=== PATIENT | female | born 1945 | race Caucasian/White ===

== ENCOUNTER 2016-12-21 08:34 | Inpatient (IN) | payer OTHER ==
--- NOTE | 2016-12-17 13:06 | GHP ---
[f rep st] HISTORY AND PHYSICAL Amended report CHIEF COMPLAINT: Right hip pain. HISTORY OF PRESENT ILLNESS: The patient is a 71-year-old female with a long history of right hip pain, worse with use, with time despite multiple conservative measures. Radiology studies reveal lhag-ux-laef osteoarthritic changes. She wishes to have surgery in order to resolve the problem. ALLERGIES: She lists no drug allergies. MEDICATIONS: None. MEDICAL HISTORY: Significant for arthritis and cancer. PRIOR SURGERIES: Include orthopedic surgery in 2007. SOCIAL HISTORY: She is a former smoker. PHYSICAL EXAMINATION: EYES: Pupils are equal, round, and reactive to light. CHEST: Clear to auscultation. HEART: Regular rate and rhythm. ABDOMEN: Soft , nontender. EXTREMITIES: Her right hip has decreased range of motion with pain at the end of internal/external rotation. ASSESSMENT AND PLAN: Patient is status post right hip osteoarthritis. Risks and benefits of surgery were thoroughly discussed with the patient. She is willing to proceed; therefore, consent was signed. She was given postop followup appointment for removal of suture. /[id number]/MODL Add acc#, 12/17/16, dina RODRIGUEZ
--- NOTE | 2016-12-21 07:09 | PDHPUP ---
History & Physical Update H&P update statement: This history and physical update is based on an assessment of the patient which was completed after admission or registration (within 24 hours), but prior to the surgery/procedure. H&P update: H&P reviewed & patient examined, no change in patient's condition since H&P completed
[~2016-12-21 08:34] MED LIST: ACETAMINOPHEN 500 MG TAB PO ONE; ROPIVACAINE 0.2% 80 MG, EPINEPHrine 0.2 MG, KETOROLAC TROMETHAMINE 30 MG, morphINE 10 M... IU ONE; ceFAZolin 2 GM/DEXTROSE 100 ML IV ONE
[2016-12-21] MEDS ORDERED: LR 1,000 ML IV ONE (08:51)
[2016-12-21] MEDS ORDERED: LIDOCAINE 1% 2 ML INJ ID PRN (08:51)
[2016-12-21] MEDS ORDERED: CALCIUM CHLORIDE 1 GM/10 ML INJ ONE (09:37)
[2016-12-21] MEDS ORDERED: BUPIVACAINE/EPI 0.5% 30 ML SDV ONE (09:37)
[2016-12-21] MEDS ORDERED: THROMBIN (BOVINE) 5,000 UNIT VIAL TP ONE (09:37)
[2016-12-21] MEDS ORDERED: BACITRACIN 50,000 UNITS/10 ML SYR IRR ONE (09:38)
[2016-12-21] MEDS ORDERED: POLYMYXIN B SULFATE 500,000 UNIT/10 ML SYR IRR ONE (09:38)
[2016-12-21] MEDS ORDERED: fentaNYL 100 MCG/2 ML INJ ONE ×2 (09:54→12:50)
[2016-12-21] MEDS ORDERED: PROPOFOL/EMULSION 500 MG/50 ML BOTTLE IV ONE (09:55)
[2016-12-21] MEDS ORDERED: MIDAZOLAM 2 MG/2 ML VIAL ONE (09:59)
[2016-12-21] MEDS ORDERED: ALBUTEROL 3 ML DEYVIAL IH PRN (10:24)
[2016-12-21] MEDS ORDERED: MEPERIDINE 25 MG/ML SYR IVP PRN (10:24)
[2016-12-21] MEDS ORDERED: HYDROmorphONE/DILAUDID 1 MG/ML SYR IVP PRN (10:24)
[2016-12-21] MEDS ORDERED: NALOXONE HCL 0.4 MG/ML INJ IVP PRN (10:24)
[2016-12-21] MEDS ORDERED: PROMETHAZINE HCL 25 MG/ML INJ IVP PRN ×2 (10:24→12:34)
[2016-12-21] MEDS ORDERED: METOCLOPRAMIDE 10 MG/2 ML VIAL IVP PRN ×2 (10:24→12:34)
[2016-12-21] MEDS ORDERED: ONDANSETRON 4 MG/2 ML VIAL IVP PRN ×2 (10:24→12:34)
[2016-12-21] MEDS ORDERED: LR 500 ML IV PRN (10:24)
--- NOTE | 2016-12-21 10:28 | PDANEPAE ---
ANE Past Medical History - Cardiovascular History Hx Hypertension: No Hx Arrhythmias: No Hx Chest Pain: No Hx Coronary Artery / Peripheral Vascular Disease: No Hx CHF / Valvular Disease: No Hx Palpitations: No - Pulmonary History Hx COPD: No Hx Asthma/Reactive Airway Disease: No Hx Recent Upper Respiratory Infection: No Hx Oxygen in Use at Home: No Hx Sleep Apnea: No Sleep Apnea Screening Result - Last Documented: Negative Pulmonary History Comment: pneumonia in past x3-4 - Neurologic History Hx Cerebrovascular Accident: No Hx Seizures: No Hx Dementia: No - Endocrine History Hx Diabetes: No - Renal History Hx Renal Disorders: No - Liver History Hx Hepatic Disorders: No - Neurological & Psychiatric Hx Hx Neurological and Psychiatric Disorders: Yes Neurological / Psychiatric History Comment: low back pain probably due to change in gait - Cancer History Hx Cancer: Yes Cancer History Comment: R breast - Congenital Disorder History Hx Congenital Disorders: No - GI History Hx Gastrointestinal Disorders: No - Other Health History Other Health History: OA R hip. pain/swelling L knee-meniscus tear? - Chronic Pain History Chronic Pain: Yes (R hip,L knee) - Surgical History Prior Surgeries: R shoulder replacement 2007. R shoulder scope 2006. R breast lumpectomy ANE Review of Systems - Exercise capacity METS (RN): 4 METS ANE Patient History - Allergies Allergies/Adverse Reactions: No Known Allergies Allergy (Verified 12/10/16 11:44) - Home Medications Home Medications: Acid Registered Nurse Nursery 12/10/16 [Last Taken 12/18/16] Doxylamine Succinate 12/10/16 [Last Taken 12/20/16] Tylenol 12/10/16 [Last Taken 12/20/16] - NPO status NPO Since - Liquids (Date): 12/20/16 NPO Since - Liquids (Time): 23:30 NPO Since - Solids (Date): 12/20/16 NPO Since - Solids (Time): 18:00 - Smoking Hx Smoking Status: Former smoker ANE Labs/Vital Signs - Vital Signs Blood Pressure: 113/66 Heart Rate: 69 Respiratory Rate: 16 O2 Sat (%): 93 Height: 170.18 cm Weight: 76.204 kg ANE Physical Exam - Airway Neck exam: FROM Mallampati Score: Class 2 Mouth exam: normal dental/mouth exam - Pulmonary Pulmonary: no respiratory distress, clear to auscultation - Cardiovascular Cardiovascular: regular rate and rhythym - ASA Status ASA Status: II
[2016-12-21] MEDS ORDERED: DEXAMETHASONE 4 MG/ML VIAL ONE (10:31)
[2016-12-21] MEDS ORDERED: ONDANSETRON 4 MG/2 ML VIAL ONE (10:31)
[2016-12-21] MEDS ORDERED: PHENYLEPHRINE HCL 100 MCG/ML SYR ONE (10:32)
--- NOTE | 2016-12-21 12:32 | POSTOPPROG ---
Post Op Note Date of Operation: 12/21/16 Surgeon: Irene Collado Bone Char Operator: rudy Anesthesiologist: yessi Anesthesia: Epidural, IV Sedation Pre-op Diagnosis: r hip oa Procedure: r tiago with fluoro Inf/Abcess present in the surg proc area at time of surgery?: No Depth: Deep Incisional (Fascial) EBL: 100-500
[2016-12-21] MEDS ORDERED: MAGNESIUM HYDROXIDE 30 ML UDCUP PO PRN (12:34)
[2016-12-21] MEDS ORDERED: diphenhydrAMINE 25 MG CAP PO PRN (12:34)
[2016-12-21] MEDS ORDERED: TAPENTADOL HCL 50 MG TAB PO PRN (12:34)
[2016-12-21] MEDS ORDERED: DIPHENOXYLATE/ATROPINE LOMOTIL 1 TAB PO PRN (12:34)
[2016-12-21] MEDS ORDERED: POLYETHYLENE GLYCOL 3350 17 GM PKT PO PRN (12:34)
[2016-12-21] MEDS ORDERED: CYCLOBENZAPRINE 10 MG TAB PO PRN (12:34)
[2016-12-21] MEDS ORDERED: PROMETHAZINE HCL 25 MG SUPPR PR PRN (12:34)
[2016-12-21] MEDS ORDERED: PHARMACY PAIN CONSULT 1 EA MISC PRN (12:34)
[2016-12-21] MEDS ORDERED: BISACODYL 10 MG SUPP PR PRN (12:34)
[2016-12-21] MEDS ORDERED: LACTULOSE 20 GM/30 ML UDCUP PO PRN (12:34)
[2016-12-21] MEDS ORDERED: TEMAZEPAM 15 MG CAP PO PRN (12:34)
[2016-12-21] MEDS ORDERED: ONDANSETRON DISINTEGRATING 4 MG TAB PO PRN (12:34)
--- NOTE | 2016-12-21 12:39 | POSTANESTH ---
Post Anesthetic Evaluation Respiratory Status: Normal, Stable Level of Consciousness/Mental Status: Can Participate in Eval Pain Control: Adequate, Prn Tx Ordered Nausea/Vomiting Control: Adequate, Prn Tx Ordered Complications Possibly Related to Anesthesia: None Noted
[2016-12-21] MEDS: fentaNYL 100 MCG/2 ML INJ IVP PRN ×2 (12:52→13:01)
[2016-12-21] MEDS ORDERED: LR 1,000 ML IV SCH (13:00)
[2016-12-21] MEDS ORDERED: ceFAZolin 2 GM/DEXTROSE 100 ML IV SCH (14:00)
--- NOTE | 2016-12-21 14:13 | GOP ---
[f rep st] OPERATIVE REPORT DATE OF OPERATION: 12/21/2016 SURGEON: Irene Clolado MD COMBAT SYSTEMS OPERATOR: Hemant Nugent, CSFA, LSA, whose presence was medically necessary. ANESTHESIA: By epidural nerve block. PREOPERATIVE DIAGNOSIS: Right hip osteoarthritis. POSTOPERATIVE DIAGNOSIS: Right hip osteoarthritis. PROCEDURE PERFORMED: Right total hip arthroplasty with fluoroscopy. FINDINGS: INDICATIONS: This is a 71-year-old female with a several-year history of right hip pain slowly wors ening with use and with time to the point she has difficulty ambulating without taking significant a mount of anti-inflammatories. X-ray exams have revealed ifmy-cs-bqwk osteoarthritic changes. She w ishes to have surgery in order to resolve the problem. DESCRIPTION OF PROCEDURE: The patient was brought to the operating room after the right side had be en identified as correct side by the patient, nurse and physician. Once in the operating room, she was given an epidural nerve block. The patient was then placed on a traction table with a well-padd ed peroneal post. Both legs were placed in appropriate leg tang. Fluoroscopy was used to ensure proper positioning of the pelvis and adequate visualization of both hips. Once in place, the arch t able was locked into place, and the right hip and flank were sterilely prepped and draped in usual f ashion using GSI solution. Once prepped and draped, an incision was made starting 2 cm lateral and inferior to the ASIS and hea ding in a 15-degree posterior direction. Sharp dissection was carried down through the skin and sub cutaneous layers with bleeding controlled using electrocautery until identifying the fascia overlyin g the tensor fascia della sheath. The fascia was incised in line with its fibers, with the muscle be lly of the TFL retracted laterally. Further deeper dissection of the sheath revealed the circumflex vessels; those were also cauterized. Deeper dissection was carried down on the anterior capsule of the hip with blunt Cobra retractors placed in the superior and inferior portions of the capsule ass ociated with hip. A Hohmann placed on the anterior portion in order to gain further visu alization. A T-incision was made through the anterior capsule with stay sutures placed in superior and inferior portions of the capsule. The Cobra retractor was then placed intra-articularly. Oscil ivyg saw was used to cut across the femoral neck 1 cm above the intercondylar line. The cut was c ompleted with an osteotome. The leg was externally rotated 40 degrees. A corkscrew was placed in t he femoral head, and the head was removed as 1 piece. Attention was turned to the acetabulum. With the labrum from the posterior, superior and anterior p ortions of the acetabulum removed, pulvinar was removed from the base, the acetabulum along with the remainder of the ligamentum teres. Reamers were used within the acetabulum, starting at a size 48 and increasing to a size 53, achieving bleeding bone and good peripheral fit. A 53 trial was put in to place and noted to fit securely; therefore, a 53 mm Tritanium hemispheric cluster hole shell from [employer] [facility] was put into place with a screw placed in the superior and posterior portions of the acetab ulum. Each position was checked under fluoroscopy, noting good position of the trial and of the act ual cup. Manhole cover was placed as base, and a 54 x 32 ceramic liner was placed within the acetab ulum. Attention was then turned to the proximal femur, with dissection done of the anterior capsule and joseph perior capsule off the femoral neck removed. Once an adequate amount of tissue had been removed, th e leg was able to be dropped into extension and adduction. Curette was used to remove medullary bon e from the proximal portion of the femur, and a rongeur was used to remove the superior portion of t he femoral neck. Multiple broaches were placed within the femur, noting a size 4 seemed to fit secu rely. Trial reduction was performed, noted to have adequate fill of the proximal femur and good leg lengths. Therefore, the leg was re-dislocated, placed in extension and adduction. A size 4 Accola de II, 127-degree neck stem was put into place, noted to fit securely. Different trial heads were p ut into place, noted to have the best leg length with a -4 head. Therefore, the hip was re-dislocat ed. The trunnion was washed and dried, and a 32, -4 ceramic head was put into place. Once tapped i nto place, the hip was reduced. A joint cocktail was injected into the posterior capsule and around the acetabulum and proximal femu r. The capsule was then closed with 0 Vicryl suture in a irinma-yi-mgnro type stitch with Plasma Ge l placed intra-articularly. The TFL sheath was allowed to come back together. An 0 Vicryl suture w as used in a simple running stitch to close the sheath, with Plasma Gel placed within the tendon she ath. 0 Vicryl and 2-0 Vicryl suture were used for the subcutaneous layers with 30 cc of Marcaine in fused around the actual skin incision itself. A 3-0 V-Loc suture was used in a running subcuticular stitch for the skin. The wound was then dressed with Steri-Strips, Xeroform, 4 x 4, and Tegaderm. She was completely undraped in the operating room, had both legs taken out of appropriate leg tang s. The peroneal posts were removed. Leg lengths were checked, and noted to be nearly equal. She w as then transferred onto a stretcher, and sent to recovery room in good condition. /[id number]/MODL
[2016-12-21] MEDS: oxyCODONE IR 5 MG TAB PO PRN ×3 (15:10→22:17)
[2016-12-21] MEDS: ceFAZolin 2 GM/DEXTROSE 100 ML IV SCH ×2 (16:34→22:15)
[2016-12-21] MEDS: KETOROLAC 30 MG/1 ML SDV IVP SCH (18:05)
[2016-12-21] MEDS: ACETAMINOPHEN 325 MG TAB PO SCH ×2 (21:04→22:16)
[2016-12-21] MEDS: traMADol 50 MG TAB PO SCH ×2 (21:04→22:16)
[2016-12-21] MEDS: SENNOSIDES/DOCUSATE SODIUM TAB PO SCH (22:15)
[2016-12-21] MEDS: FAMOTIDINE 20 MG TAB PO SCH (22:17)
[2016-12-22] MEDS: KETOROLAC 30 MG/1 ML SDV IVP SCH ×2 (00:47→07:22)
[2016-12-22 05:24] LABS: HEMATOCRIT 26.7 % (38.0-47.0); HEMOGLOBIN 9.3 g/dL (12.6-16.3)
[2016-12-22] MEDS: traMADol 50 MG TAB PO SCH ×2 (06:31→13:49)
[2016-12-22] MEDS: ACETAMINOPHEN 325 MG TAB PO SCH ×2 (06:32→13:48)
[2016-12-22] MEDS: SENNOSIDES/DOCUSATE SODIUM TAB PO SCH (08:05)
[2016-12-22] MEDS: FAMOTIDINE 20 MG TAB PO SCH (08:06)
[2016-12-22] MEDS ORDERED: RIVAROXABAN 10 MG TAB PO SCH (09:00)
[2016-12-22] MEDS ORDERED: FERROUS SULFATE 140 MG TAB.ER PO SCH (09:00)
--- NOTE | 2016-12-22 11:31 | SOAPPROG ---
SOAP Progress Note Assessment/Plan: Assessment: Plan: d/c home today c PT dressing changed 12/22/16 11:29 Subjective: Doing well, minimal pain, did PT, some nausea has not been able to eat yet, hopes she can keep lunch down Objective: Vital Signs Temp Pulse Resp BP Pulse Ox 37.0 C 73 15 103/51 L 95 12/22/16 07:58 12/22/16 07:58 12/22/16 07:58 12/22/16 07:58 12/22/16 07:58 Laboratory Results 12/22/16 04:31 12/21/16 12/22/16 12/23/16 05:59 05:59 05:59 Intake Total 1400 Output Total 500 Balance 900 Wound small amt of active bleeding, dressing was soaked with blood, compartments are soft, NVI - Time Spent With Patient Time Spent With Patient: 10 - Pending Discharge Pending Discharge Within 24 Hours: Yes Pending Discharge Within 48 Hours: No Pending Discharge Date: 12/23/16 Pending Discharge Time: 11:00 ICD10 Worksheet Patient Problems: Problems Problem Status Onset Arthritis of right hip Acute - ICD10 Problem Qualifiers (1) Arthritis of right hip
--- NOTE | 2016-12-22 11:33 | PDIAF ---
- Diagnosis Code Status: Full Code - Medication Management Discharge Medications: Medications to Continue on Transfer Herbals/Supplements -Info Only 1 ea PO DAILY 12/21/16 [Last Taken Unknown] Acetaminophen [Tylenol 325mg (*)] 650 mg PO Q6HRS #0 tab 12/22/16 [Last Taken Unknown] Rivaroxaban [Xarelto 10mg (*)] 10 mg PO DAILY #0 tab 12/22/16 [Last Taken Unknown] Tapentadol HCl [Nucynta 50 MG (*)] 50 mg PO Q4HRS PRN #0 tab 12/22/16 [Last Taken Unknown] oxyCODONE IR [Oxycodone Ir (*)] 5 - 10 mg PO Q3HRS PRN #0 tab 12/22/16 [Last Taken Unknown] Discharge Medications: Refer to the Discharge Home Medication list for PRN reason. PICC Care - Routine: N/A - Orders Services needed: Physical Therapy Diet Recommendation: no restrictions on diet Diet Texture: Regular Texture Diet Sepulveda: Not applicable Wound Care Instructions: Change dressing as needed - Follow Up Care Current Providers and Referrals: Rashel Hinojosa MD [Primary Care Provider] -
[2016-12-22 11:35] VITALS: BP 120/54; PULSE 78; RESP 14; TEMP 98; O2SAT 97
== END 2016-12-22 14:23 | disposition home health service (06) | DRG 470 ==
LOC: F3N 08:34
PROVIDERS: ADMIT Orthopaedic Surgery; ATTEND Orthopaedic Surgery
PROC: 0SR903Z Replacement of Right Hip Joint with Ceramic Synthetic Substitute, Open Approach (ICD-10-PCS; principal; 2016-12-21 10:15)
DX: M16.11 Unilateral primary osteoarthritis, right hip (principal); Z87.891 Personal history of nicotine dependence
CPT/HCPCS: 97116-GP; 97161-GP; 97165-GO; C1713; G8978-GP-CJ; G8979-GP-CI; G8980-GP-CI; G8987-GO-CI; G8988-GO-CI; G8989-GO-CI; J0171; J0690; J1100; J1885; J2250; J2370; J2405; J2550; J2704; J2765; J2795; J3010

== ENCOUNTER 2016-12-26 07:55 | Emergency (ER) | payer OTHER ==
[2016-12-26 08:05] VITALS: RESP 18
--- NOTE | 2016-12-26 08:16 | EDPHY ---
H & P Time Seen by Provider: 12/26/16 08:15 HPI/ROS: Chief complaint. Blood in urine HPI. 71-year-old female emergency department with dark urine this morning. She had a hip replacement 5 days ago. She gets a dry mouth after taking her medication and thinks that she had decreased oral intake last night. She is concerned there may have been blood in her urine this morning and she is on Xarelto since her surgery. She notes increased swelling to her right thigh and not wearing her Trent hose but still continuing to take her Xarelto. Dark urine this morning. No urinary symptoms. No fever. ROS Constitutional. no fever/chills, no weakness Eyes. no problems with vision ENT. no sore throat, no nasal drainage Cardiovascular. no chest pain Respiratory. no shortness of breath, no cough Abdominal. no abdominal pain, no nausea/vomiting, no diarrhea . Possible blood in urine MS. Right thigh swelling Skin. no rash Lymph. no swollen glands Neuro. no headache, no dizziness, no difficulty walking or with speech Past Medical/Surgical History: Past medical history significant for recent right hip replacement, right breast cancer status post lumpectomy, insomnia, right shoulder surgery Social History: , nonsmoker, no alcohol Smoking Status: Former smoker Physical Exam: General Appearance: Alert well-developed female mild distress vital signs stable Eyes: Pupils equal and round no pallor or injection. ENT, Mouth: Mucous membranes are moist. Respiratory: There are no retractions, lungs are clear to auscultation. Cardiovascular: Regular rate and rhythm. Gastrointestinal: Abdomen is soft and nontender, no masses, bowel sounds normal. Neurological: Awake and alert, sensory and motor exams grossly normal. Skin: Warm and dry, no rashes. Musculoskeletal: Neck is supple nontender. Extremities right thigh is swollen and ecchymotic. Incision line appears to have good approximation and no evidence for infection. No calf pain or swelling. Psychiatric: Patient is oriented X 3, there is no agitation. Constitutional: Initial Vital Signs Temperature (C) 37.2 C 12/26/16 08:02 Heart Rate 84 12/26/16 08:02 Respiratory Rate 18 12/26/16 08:02 Blood Pressure 124/79 H 12/26/16 08:02 O2 Sat (%) 98 12/26/16 08:02 O2 Delivery Mode Room Air Allergies/Adverse Reactions: No Known Allergies Allergy (Verified 12/10/16 11:44) Home Medications: Medication Instructions Recorded Herbals/Supplements -Info Only 1 ea PO DAILY 12/21/16 Acetaminophen [Tylenol 325mg (*)] 650 mg PO Q6HRS #0 tab 12/22/16 Rivaroxaban [Xarelto 10mg (*)] 10 mg PO DAILY #0 tab 12/22/16 oxyCODONE IR [Oxycodone Ir (*)] 5 - 10 mg PO Q3HRS PRN #0 tab 12/22/16 Tapentadol HCl 12/26/16 Medical Decision Making - Diagnostics Imaging Results: Imaging Impressions Extremity Venous Study 12/26/16 08:36 Impression: No evidence of deep vein thrombosis in the right lower extremity. Results called and discussed with RAJEEV WOODARD M.D. on 12/26/2016 at 9:41 Ultrasound right lower extremity shows no evidence of DVT. It is reviewed by me and discussed with Dr. King BIANCHI Course/Re-evaluation: Urinalysis is negative for blood or infection Re-evaluation 9:55 a.m.--patient is stable. She and I discussed lab and imaging study results. We discussed treatment plan including criteria for return importance of follow-up and further evaluation. She expresses understanding and agreement. The patient is encouraged to decrease activity somewhat and ice and elevate her right lower extremity to decrease her swelling. Differential Diagnosis: The patient felt that she may have blood in her urine. I considered hematuria and urinary tract infection. Patient is on Xarelto the last 5 days. However her urinalysis is normal other than urobilinogen. There is no evidence for DVT. I think this is postop swelling - Data Points Laboratory Results: 12/26/16 08:15 Urine Color YELLOW Urine Appearance CLEAR Urine pH 6.0 (5.0-7.5) Ur Specific [place] 1.010 (1.002-1.030) Urine Protein NEGATIVE (NEGATIVE) Urine Ketones NEGATIVE (NEGATIVE) Urine Blood NEGATIVE (NEGATIVE) Urine Nitrate NEGATIVE (NEGATIVE) Urine Bilirubin NEGATIVE (NEGATIVE) Urine Urobilinogen 4.0 EU H EU (0.2-1.0) Ur Leukocyte Esterase NEGATIVE (NEGATIVE) Urine RBC NONE SEEN /hpf /hpf (0-3) Urine WBC 1-3 /hpf /hpf (0-3) Ur Epithelial Cells TRACE /lpf /lpf (NONE-1+) Urine Mucus TRACE /lpf /lpf (NONE-1+) Urine Glucose NEGATIVE (NEGATIVE) Departure - Departure Disposition: Home, Routine, Self-Care Clinical Impression: Postop swelling Condition: Good Instructions: Precautions after Total Joint Replacement Surgery (ED) Additional Instructions: Easy activity. Elevate leg as much as possible next several days. I spoke off and on next 48 hours. Continue regular medications. Drink plenty of fluids and stay hydrated. Return for worsening symptoms Referrals: Rashel Hinojosa MD [Primary Care Provider] - As per Instructions Irene Collado MD [Medical Doctor] - As per Instructions
[2016-12-26 08:35] LABS: COLOR YELLOW; LEUKOCYTE ESTERASE,URINE NEGATIVE (NEGATIVE); NITRITE,URINE NEGATIVE (NEGATIVE)
[2016-12-26 08:36] LABS: MUCUS TRACE /lpf (NONE-1+)
[2016-12-26 08:37] LABS: RBC,URINE NONE SEEN /hpf (0-3)
[2016-12-26 10:38] VITALS: BP 124/62; PULSE 69; TEMP 98.4; O2SAT 96
== END 2016-12-26 10:37 | disposition home or self-care (01) ==
DX: T81.89XA Other complications of procedures, not elsewhere classified, initial encounter (principal); M79.89 Other specified soft tissue disorders; Z85.3 Personal history of malignant neoplasm of breast; Z87.891 Personal history of nicotine dependence; Y79.2 Prosthetic and other implants, materials and accessory orthopedic devices associated with adverse incidents

== ENCOUNTER 2017-12-08 09:55 | Emergency (ER) | payer OTHER ==
--- NOTE | 2017-12-08 10:30 | EDPHY ---
General - History Smoking Status: Former smoker Time Seen by Provider: 12/08/17 10:18 Narrative: CHIEF COMPLAINT: Left foot injury last night HISTORY OF PRESENT ILLNESS: Patient presents with spouse at bedside. She complains of injury to the left foot late last night. She says she was getting in bed when she stubbed the left foot against the bed. She says that it was very painful but she went sleep. She woke this morning with more pain some swelling and bruising. Able to walk but it is very painful to do so. Does not radiate. No numbness or tingling. No laceration or puncture. No pain anywhere else in the left lower extremity. No pain at rest. No other associated complaints or modifying factors. ESTABLISHED ORTHOPEDIST: Dr. Irene Collado REVIEW OF SYSTEMS: Ten systems reviewed and are negative unless otherwise noted in the HPI PAST MEDICAL HISTORY: Osteoarthritis, breast cancer, insomnia PAST SURGICAL HISTORY: Lumbar back to ky, right shoulder replacement SOCIAL HISTORY: Nonsmoker. Lives with her spouse independently. FAMILY HISTORY: Noncontributory EXAMINATION General Appearance: Alert, no distress Cardiovascular: Symmetric DP PT pulses 2+. Brisk cap refill in the left foot. Neurological: A&O, light sensory symmetric to the feet, great toe strength symmetric Skin: Warm and dry, no rash. No petechiae or purpura. There is some ecchymosis over the 2nd 3rd toes of the left foot. Extremities: Tenderness over the 2nd and 3rd toes the left foot near the MCP joints. There is no tenderness of the left midfoot, left calcaneus or left proximal fibula. Range of motion of the foot is intact with painful movement of the toes. No footdrop. Psychiatric: Mood and affect normal DIFFERENTIAL DIAGNOSES: Including but not limited to fracture, sprain, strain, dislocation, subluxation MDM: 10:30 a.m. Acute injury to the left foot late last night with pain in the 2nd and 3rd toes and MCP joints. She is neuro intact. No deformity. No pain in the heel, ankle or proximal fibula. 10:54 a.m. X-ray as read by me reveals a an oblique, mildly comminuted fracture of the proximal phalanx of the left 2nd toe. Do not appreciate a midfoot fracture. I re-evaluated the patient discussed this with her. She is established with Dr. Collado and does have a tanker serviceman she seen before. I will provide the on-call tanker serviceman for her. Will place her in a postoperative shoe and praveen tape the toe. We discussed ice, elevation anti-inflammatories. We discussed short course of pain medication as needed. We discussed ED precautions. She will be discharged home stable conditions with outpatient follow-up. SUPERVISION: This patient was independently evaluated without direct involvement of or examination by the attending physician. ED Precautions: Worsening pain. Erythema, edema, cyanosis, pallor, paresthesia or anesthesia. (Bernard Mohr) Medical Decision Making: I did not see this patient while she was in the emergency department. However her care was discussed with the PA while the patient was in the department. I agree with treatment plan and management (Ochoa Raza) - Objective Vital Signs: Initial Vital Signs Temperature (C) 97.5 F 12/08/17 09:59 Heart Rate 74 12/08/17 09:59 Respiratory Rate 18 12/08/17 09:59 Blood Pressure 132/87 H 12/08/17 09:59 O2 Sat (%) 97 12/08/17 09:59 O2 Delivery Mode Room Air Allergies/Adverse Reactions: No Known Allergies Allergy (Verified 12/08/17 09:58) Home Medications: Medication Instructions Recorded Hydrocodone/APAP 5/325 [[place] 1 - 2 tab PO Q4H PRN #7 tab 12/08/17 5/325 (*)] Departure - Departure Disposition: Home, Routine, Self-Care Clinical Impression: Displaced fracture of proximal phalanx of left lesser toe(s), initial encounter for closed fracture Condition: Good Instructions: Toe Fracture (ED) Additional Instructions: 1. Medications as discussed as needed 2. Follow up with Orthopedics for definitive care 3. ED precautions as discussed for worsening pain, redness, fever, changes in range of motion, changes in sensation Referrals: Daiana Rubin MD [Primary Care Provider] - As per Instructions Irene Collado MD [Medical Doctor] - As per Instructions Kirk Oliveira DPM [Doctor of Podiatric Medicine] - As per Instructions Prescriptions: Hydrocodone/APAP 5/325 [[place] 5/325 (*)] 1 - 2 tab PO Q4H PRN #7 tab PRN Reason: Pain, Moderate
[2017-12-08 11:38] VITALS: BP 135/75
== END 2017-12-08 11:38 | disposition home or self-care (01) ==
DX: S92.512A Displaced fracture of proximal phalanx of left lesser toe(s), initial encounter for closed fracture (principal); Z85.3 Personal history of malignant neoplasm of breast; Z87.891 Personal history of nicotine dependence; W22.03XA Walked into furniture, initial encounter; Y99.8 Other external cause status; Y93.89 Activity, other specified
CPT/HCPCS: 73630; 99283; L4386